=== PATIENT | male | born 1985 | race Hispanic/Latino ===

== ENCOUNTER 2018-04-24 20:40 | Emergency (ER) | payer SELFPAY ==
--- NOTE | 2018-04-24 22:08 | EDPHYS ---
Physician Documentation [facility] Name: Bo Drummond Age: 32 yrs Sex: Male : 1985 Arrival Date: 04/24/2018 Time: 20:46 Bed 9 Private MD: ED Physician Joao Tucker HPI: 04/24 22:05 This 32 yrs old Male presents to ER via Ambulatory with complaints of Work tw4 Release. 22:05 The patient or guardian reports cough, that is intermittent. Onset: The tw4 symptoms/episode began/occurred 2 day(s) ago. Severity of symptoms: At their worst the symptoms were mild, in the emergency department the symptoms have resolved. Modifying factors: The symptoms are alleviated by nothing, the symptoms are aggravated by nothing. Associated signs and symptoms: The patient has no apparent associated signs or symptoms. The patient has not experienced similar symptoms in the past. Historical: - Allergies: 21:08 No Known Allergies; tl3 - PSHx: 21:08 Appendectomy; Hernia repair; tl3 - Immunization history:: Adult Immunizations up to date. - Social history:: Smoking status: Patient uses tobacco products, smokes one pack cigarettes per day. - Ebola Screening: : Patient denies travel to an Ebola-affected area in the 21 days before illness onset. ROS: 22:05 Constitutional: Negative for fever, chills, and weight loss, Cardiovascular: Negative tw4 for chest pain, palpitations, and edema. 22:05 Back: Negative for injury and pain, MS/Extremity: Negative for injury and deformity. 22:05 Respiratory: Positive for cough, Negative for dyspnea on exertion, hemoptysis, orthopnea, pleurisy, shortness of breath, sputum production, wheezing. 22:05 Abdomen/GI: Positive for nausea, vomiting, and diarrhea, nausea, vomiting, diarrhea, Negative for abdominal pain, constipation, abdominal cramps, abdominal distension, anorexia, dysphagia, hematemesis, black/tarry stool, rectal pain, rectal bleeding, bowel incontinence. Exam: 22:05 Constitutional: This is a well developed, well nourished patient who is awake, alert, tw4 and in no acute distress. Head/Face: Normocephalic, atraumatic. Chest/axilla: Normal chest wall appearance and motion. Nontender with no deformity. No lesions are appreciated. Cardiovascular: Regular rate and rhythm with a normal S1 and S2. No gallops, murmurs, or rubs. Normal PMI, no JVD. No pulse deficits. Respiratory: Lungs have equal breath sounds bilaterally, clear to auscultation and percussion. No rales, rhonchi or wheezes noted. No increased work of breathing, no retractions or nasal flaring. Abdomen/GI: Soft, non-tender, with normal bowel sounds. No distension or tympany. No guarding or rebound. No evidence of tenderness throughout. MS/ Extremity: Pulses equal, no cyanosis. Neurovascular intact. Full, normal range of motion. Vital Signs: 21:08 BP 129 / 92; Pulse 90; Resp 18; Temp 98.6(T); Pulse Ox 98% ; Weight 77.11 kg; Height 5 tl3 ft. 7 in. (170.18 cm); 22:33 BP 123 / 86; Pulse 85; Resp 16; Pulse Ox 99% on R/A; Pain 0/10; aa1 21:08 Body Mass Index 26.63 (77.11 kg, 170.18 cm) tl3 MDM: 21:33 Patient medically screened. tw4 22:05 Differential Diagnosis: Bronchitis Asthma Exacerbation Viral Syndrome. Data reviewed: tw4 vital signs, nurses notes. Counseling: I had a detailed discussion with the patient and/or guardian regarding: the historical points, exam findings, and any diagnostic results supporting the discharge/admit diagnosis. Special discussion: I discussed with the patient/guardian in detail that at this point there is no indication for admission to the hospital. It is understood, however, that if the symptoms persist or worsen the patient needs to return immediately for re-evaluation. Administered Medications: No medications were administered Disposition: 04/24/18 22:07 Discharged to Home. Impression: Acute upper respiratory infection, unspecified. - Condition is Stable. - Discharge Instructions: Upper Respiratory Infection, Adult, Viral Infections, [id number]. - Work release form, Medication Reconciliation Form, Thank You Letter, Antibiotic Education, Prescription Opioid Use form. - Follow up: Private Physician; When: As needed; Reason: Recheck today's complaints, Continuance of care, Re-evaluation by your physician. - Problem is new. - Symptoms have improved. Signatures: Malathi Cisse RN RN aa1 Joao Tucker MD MD tw4 Quin Mahoney, RN RN tl3 Corrections: (The following items were deleted from the chart) 22:35 22:07 04/24/2018 22:07 Discharged to Home. Impression: Acute upper respiratory aa1 infection, unspecified. Condition is Stable. Forms are Medication Reconciliation Form, Thank You Letter, Antibiotic Education, Prescription Opioid Use. Follow up: Private Physician; When: As needed; Reason: Recheck today's complaints, Continuance of care, Re-evaluation by your physician. Problem is new. Symptoms have improved. tw4
--- NOTE | 2018-04-24 22:08 | ER ---
Nurse's Notes [facility] Name: Bo Drummond Age: 32 yrs Sex: Male : 1985 Arrival Date: 04/24/2018 Time: 20:46 Bed 9 Private MD: Diagnosis: Acute upper respiratory infection, unspecified Presentation: 04/24 21:07 Presenting complaint: Patient states: two days of vomiting and diarrhea, last episodes tl3 2am today, wants clearance to go back to work. Transition of care: patient was not received from another setting of care. Onset of symptoms. Risk Assessment: Do you want to hurt yourself or someone else? Patient reports no desire to harm self or others. Initial Sepsis Screen: Does the patient meet any 2 criteria? No. Patient's initial sepsis screen is negative. Does the patient have a suspected source of infection? No. Patient's initial sepsis screen is negative. Care prior to arrival: None. 21:07 Method Of Arrival: Ambulatory tl3 21:07 Acuity: [place] 5 tl3 Triage Assessment: 21:08 General: Appears in no apparent distress. Behavior is cooperative, appropriate for age. tl3 Pain: Denies pain. Historical: - Allergies: 21:08 No Known Allergies; tl3 - PSHx: 21:08 Appendectomy; Hernia repair; tl3 - Immunization history:: Adult Immunizations up to date. - Social history:: Smoking status: Patient uses tobacco products, smokes one pack cigarettes per day. - Ebola Screening: : Patient denies travel to an Ebola-affected area in the 21 days before illness onset. Screenin:30 Abuse screen: Denies threats or abuse. Denies injuries from another. Nutritional aa1 screening: No deficits noted. Tuberculosis screening: No symptoms or risk factors identified. Fall Risk None identified. Assessment: 21:30 General: Appears in no apparent distress. comfortable, Behavior is calm, cooperative, aa1 appropriate for age. Pain: Denies pain. Neuro: Level of Consciousness is awake, alert, obeys commands, Oriented to person, place, time, situation, Moves all extremities. Full function Gait is steady. Respiratory: Airway is patent Respiratory effort is even, unlabored, Respiratory pattern is regular, symmetrical. GI: No signs and/or symptoms were reported involving the gastrointestinal system. : No signs and/or symptoms were reported regarding the genitourinary system. EENT: No signs and/or symptoms were reported regarding the EENT system. Derm: Skin is intact, is healthy with good turgor, Skin is pink, warm \T\ dry. Musculoskeletal: Circulation, motion, and sensation intact. Capillary refill < 3 seconds. 22:33 Reassessment: Patient appears in no apparent distress at this time. Patient is alert, aa1 oriented x 3, equal unlabored respirations, skin warm/dry/pink. Discussed d/c \T\ f/u instructions with pt; work note given. Denies questions or concerns at this time. Vital Signs: 21:08 BP 129 / 92; Pulse 90; Resp 18; Temp 98.6(T); Pulse Ox 98% ; Weight 77.11 kg; Height 5 tl3 ft. 7 in. (170.18 cm); 22:33 BP 123 / 86; Pulse 85; Resp 16; Pulse Ox 99% on R/A; Pain 0/10; aa1 21:08 Body Mass Index 26.63 (77.11 kg, 170.18 cm) tl3 ED Course: 20:46 Patient arrived in ED. es 21:08 Triage completed. tl3 21:08 Arm band placed on left wrist. tl3 21:26 Joao Tucker MD is Attending Physician. aa1 21:30 Malathi Cisse, RN is Primary Nurse. aa1 21:30 Patient has correct armband on for positive identification. Bed in low position. Call aa1 light in reach. 22:33 No provider procedures requiring assistance completed. Patient did not have IV access aa1 during this emergency room visit. Administered Medications: No medications were administered Outcome: 22:07 Discharge ordered by . tw4 22:33 Discharged to home ambulatory. aa1 22:33 Condition: good 22:33 Discharge instructions given to patient, Instructed on discharge instructions, follow up and referral plans. Demonstrated understanding of instructions, follow-up care. 22:35 Patient left the ED. aa1 Signatures: Malathi Cisse, RN RN aa1 Sonia Roach Terrence, MD MD tw4 Quin Mahoney RN RN tl3
== END 2018-04-24 22:35 | disposition home or self-care (01) ==
LOC: ER 20:40
DX: J06.9 Acute upper respiratory infection, unspecified (principal); F17.210 Nicotine dependence, cigarettes, uncomplicated
CPT/HCPCS: 99281

== ENCOUNTER 2018-10-23 20:55 | Emergency (ER) | payer SELFPAY ==
--- NOTE | 2018-10-23 22:05 | RAD REPORT ---
EXAM DESCRIPTION: CT - Head Brain Wo Cont - 10/23/2018 9:54 pm CLINICAL HISTORY: left facial weakness TIA/CVA symptomology. Headache COMPARISON: No comparisons TECHNIQUE: All CT scans are performed using dose optimization technique as appropriate and may inclu de automated exposure control or mA/KV adjustment according to patient size. FINDINGS: No intracranial hemorrhage, hydrocephalus or extra-axial fluid collection.No areas of brai n edema or evidence of midline shift. The paranasal sinuses and mastoids are clear. The calvarium is intact. IMPRESSION: No acute intracranial abnormality.
--- NOTE | 2018-10-23 22:34 | ER ---
Nurse's Notes [facility] Name: Bo Drummond Age: 33 yrs Sex: Male : 1985 Arrival Date: 10/23/2018 Time: 21:00 Bed 14 Private MD: Diagnosis: Colindres's palsy Presentation: 10/23 21:07 Presenting complaint: Patient states: numbness to left side of face X3 days. Transition ak1 of care: patient was not received from another setting of care. Onset of symptoms is unknown. Risk Assessment: Do you want to hurt yourself or someone else? Patient reports no desire to harm self or others. Initial Sepsis Screen: Does the patient meet any 2 criteria? No. Patient's initial sepsis screen is negative. Does the patient have a suspected source of infection? No. Patient's initial sepsis screen is negative. Care prior to arrival: None. 21:07 Method Of Arrival: Ambulatory ak1 21:07 Acuity: [place]RA[place] 3 ak1 Triage Assessment: 21:08 General: Appears in no apparent distress. Behavior is calm, cooperative. Neuro: Level ak1 of Consciousness is awake, alert, obeys commands, Oriented to person, place, time, situation, Appropriate for age Porcelain Enameling Supervisor are equal bilaterally Moves all extremities. Gait is steady, Speech is normal, Facial droop on left, Facial symmetry: tongue is midline, Pupils are PERRLA. Historical: - Allergies: 21:08 No Known Allergies; ak1 - Home Meds: 21:08 None [Active]; ak1 - PMHx: 21:08 None; ak1 - PSHx: 21:08 Hernia repair; Appendectomy; ak1 - Immunization history:: Adult Immunizations unknown. - Social history:: Smoking status: Patient uses tobacco products, smokes one pack cigarettes per day. - Ebola Screening: : No symptoms or risks identified at this time. - Family history:: not pertinent. - Hospitalizations: : No recent hospitalization is reported. Screenin:25 Abuse screen: Denies threats or abuse. Nutritional screening: No deficits noted. jb4 Tuberculosis screening: No symptoms or risk factors identified. Fall Risk None identified. Assessment: 21:25 General: Appears in no apparent distress. comfortable, Behavior is calm, cooperative, jb4 appropriate for age. Pain: Denies pain. Neuro: Level of Consciousness is awake, alert, obeys commands, Oriented to person, place, time, situation, Porcelain Enameling Supervisor are equal bilaterally Moves all extremities. Full function Gait is steady, Speech is normal, Facial droop on left, Pupils are PERRLA, Intact. Cardiovascular: Heart tones S1 S2 present Patient's skin is warm and dry. Respiratory: Airway is patent Respiratory effort is even, unlabored, Respiratory pattern is regular, symmetrical, Breath sounds are clear bilaterally. GI: No signs and/or symptoms were reported involving the gastrointestinal system. : No signs and/or symptoms were reported regarding the genitourinary system. EENT: No signs and/or symptoms were reported regarding the EENT system. Derm: Skin is intact, Skin is pink, warm \T\ dry. Musculoskeletal: Circulation, motion, and sensation intact. 23:13 Reassessment: Patient appears in no apparent distress at this time. Patient and/or jb4 family updated on plan of care and expected duration. Pain level reassessed. Patient is alert, oriented x 3, equal unlabored respirations, skin warm/dry/pink. Vital Signs: 21:08 BP 150 / 87; Pulse 69; Resp 18; Temp 98(O); Pulse Ox 100% on R/A; Weight 81.65 kg (R); ak1 Height 5 ft. 7 in. (170.18 cm) (R); Pain 0/10; 23:13 BP 121 / 86; Pulse 78; Resp 16; Pulse Ox 100% on R/A; jb4 21:08 Body Mass Index 28.19 (81.65 kg, 170.18 cm) ak1 NIH Stroke Scale Scores: 21:25 NIHSS Score: 1 jb4 ED Course: 21:00 Patient arrived in ED. es 21:08 Triage completed. ak1 21:08 Arm band placed on Patient placed in waiting room, Patient notified of wait time. ak1 21:11 Randall Gutierrez MD is Attending Physician. rn 21:25 Josse Munguia, ARTEMIO is Primary Nurse. jb4 21:25 Patient has correct armband on for positive identification. Bed in low position. Call jb4 light in reach. Side rails up X 1. Pulse ox on. NIBP on. 21:54 CT completed. Patient moved to CT via wheelchair. Patient moved back from CT. cw1 23:13 No provider procedures requiring assistance completed. Patient did not have IV access jb4 during this emergency room visit. Administered Medications: No medications were administered Outcome: 22:34 Discharge ordered by . rn 23:13 Discharged to home ambulatory. jb4 23:13 Condition: stable 23:13 Discharge instructions given to patient, Instructed on discharge instructions, follow up and referral plans. medication usage, Demonstrated understanding of instructions, follow-up care, medications, Prescriptions given X 2. 23:15 Patient left the ED. jb4 NIH Stroke Scale - NIH Stroke Score Date: 10/23/2018 Time: 21:25 Total Score = 1 1a. Level of Consciousness (LOC) - 0(Alert) 1b. Level of Consciousness (LOC) (Year \T\ Age) - 0(Both) 1c. LOC Commands (Open \T\ Closes Eyes/Building Engineer) - 0(Both) 2. Best Gaze (Lateral Gaze Paresis) - 0(Normal) 3. Visual Field Loss - 0(No visual loss) 4. Facial Palsy - 1(Minor Paralysis) 5a. Left Arm: Motor (10-second hold) - 0(No drift) 5b. Right Arm: Motor (10-second hold) - 0(No drift) 6a. Left Leg: Motor (5-second hold - always test supine) - 0(No drift) 6b. Right Leg: Motor (5-second hold - always test supine) - 0(No drift) 7. Limb Ataxia (finger/nose \T\ heel/thomas - test with eyes open) - 0(Absent) 8. Sensory Loss (pinprick arms/legs/face) - 0(Normal) 9. Best Language: Aphasia (description/naming/reading) - 0(No aphasia) 10. Dysarthria (speech clarity - read or repeat words) - 0(Normal) 11. Extinction and Inattention (visual/tactile/auditory/spatial/personal) - 0(No abnormality) Initials: jb4 Signatures: Sonia Roach Roman, MD MD rn Woodley, Crystal cw1 Karla Boothe RN RN ak1 Josse Munguia RN RN jb4
--- NOTE | 2018-10-23 22:35 | EDPHYS ---
Physician Documentation [facility] Name: Bo Drummond Age: 33 yrs Sex: Male : 1985 Arrival Date: 10/23/2018 Time: 21:00 Bed 14 Private MD: ED Physician Randall Gutierrez HPI: 10/23 21:18 This 33 yrs old Male presents to ER via Ambulatory with complaints of rn Weakness, X 3 DAYS AGO. 21:18 The patient's problem is reported as a facial droop, on left. Onset: The rn symptoms/episode began/occurred 3 day(s) ago. Duration: This was a single incident. The symptoms are alleviated by nothing. The symptoms are aggravated by nothing. Associated signs and symptoms: Pertinent positives: weakness, Pertinent negatives: abdominal pain, ataxia, blurred vision, confusion, headache, numbness. Severity of symptoms: At their worst the symptoms were mild in the emergency department the symptoms are unchanged. The patient has not experienced similar symptoms in the past. The patient has not recently seen a physician. Reports last 3 days, left facial weakness, no trauma, no headache, never had before, not getting better or worse, noticed left eye and facial weakness, no other focal neurological complaint.. Historical: - Allergies: 21:08 No Known Allergies; ak1 - Home Meds: 21:08 None [Active]; ak1 - PMHx: 21:08 None; ak1 - PSHx: 21:08 Hernia repair; Appendectomy; ak1 - Immunization history:: Adult Immunizations unknown. - Social history:: Smoking status: Patient uses tobacco products, smokes one pack cigarettes per day. - Ebola Screening: : No symptoms or risks identified at this time. - Family history:: not pertinent. - Hospitalizations: : No recent hospitalization is reported. ROS: 21:18 Constitutional: Negative for fever, chills, and weight loss, Eyes: Negative for injury, rn pain, redness, and discharge, Neck: Negative for injury, pain, and swelling, Cardiovascular: Negative for chest pain, palpitations, and edema, Respiratory: Negative for shortness of breath, cough, wheezing, and pleuritic chest pain, Abdomen/GI: Negative for abdominal pain, nausea, vomiting, diarrhea, and constipation, MS/Extremity: Negative for injury and deformity, Skin: Negative for injury, rash, and discoloration, Neuro: + weakness of left face Exam: 21:18 Constitutional: This is a well developed, well nourished patient who is awake, alert, rn and in no acute distress. Head/Face: Normocephalic, atraumatic. Eyes: Pupils equal round and reactive to light, extra-ocular motions intact. Lids and lashes normal. Conjunctiva and sclera are non-icteric and not injected. Cornea within normal limits. Periorbital areas with no swelling, redness, or edema. Skin: Warm, dry with normal turgor. Normal color with no rashes, no lesions, and no evidence of cellulitis. MS/ Extremity: Pulses equal, no cyanosis. Neurovascular intact. Full, normal range of motion. Equal circumference. Neuro: Awake and alert, GCS 15, oriented to person, place, time, and situation.+ left upper and lower facial droop, mild. Motor strength 5/5 in all extremities. Sensory grossly intact. Cerebellar exam normal. Normal gait. Vital Signs: 21:08 BP 150 / 87; Pulse 69; Resp 18; Temp 98(O); Pulse Ox 100% on R/A; Weight 81.65 kg (R); ak1 Height 5 ft. 7 in. (170.18 cm) (R); Pain 0/10; 23:13 BP 121 / 86; Pulse 78; Resp 16; Pulse Ox 100% on R/A; jb4 21:08 Body Mass Index 28.19 (81.65 kg, 170.18 cm) ak1 NIH Stroke Scale Scores: 21:25 NIHSS Score: 1 jb4 MDM: 21:11 Patient medically screened. rn 22:32 Differential diagnosis: bells palsy. Data reviewed: vital signs, nurses notes, rn radiologic studies, CT scan, and as a result, I will discharge patient. Counseling: I had a detailed discussion with the patient and/or guardian regarding: the historical points, exam findings, and any diagnostic results supporting the discharge/admit diagnosis, radiology results, the need for outpatient follow up, to return to the emergency department if symptoms worsen or persist or if there are any questions or concerns that arise at home. Special discussion: I discussed with the patient/guardian in detail that at this point there is no indication for admission to the hospital. It is understood, however, that if the symptoms persist or worsen the patient needs to return immediately for re-evaluation. Based on the history and exam findings, there is no indication for further emergent testing or inpatient evaluation. I discussed with the patient/guardian the need to see the primary care provider for further evaluation of the symptoms. ED course: Ct head negative, symptoms consistent with bells palsy.. 10/23 21:18 Order name: CT Head Brain wo Cont rn 10/23 22:07 Order name: CT EDMS Administered Medications: No medications were administered Disposition: 10/23/18 22:34 Discharged to Home. Impression: Colindres's palsy. - Condition is Stable. - Discharge Instructions: Colindres Palsy, Adult. - Prescriptions for Acyclovir 400 mg Oral Tablet - take 1 tablet by ORAL route every 8 hours; 30 tablet. Medrol (Tate) 4 mg Oral Tablets, Dose Pack - take 1 tablet by ORAL route as directed - follow package instructions; 1 packet. - Medication Reconciliation Form, Thank You Letter, Antibiotic Education, Prescription Opioid Use, Work release form form. - Follow up: Private Physician; When: As needed; Reason: Recheck today's complaints, Re-evaluation by your physician. - Problem is an ongoing problem. - Symptoms are unchanged. NIH Stroke Scale - NIH Stroke Score Date: 10/23/2018 Time: 21:25 Total Score = 1 1a. Level of Consciousness (LOC) - 0(Alert) 1b. Level of Consciousness (LOC) (Year \T\ Age) - 0(Both) 1c. LOC Commands (Open \T\ Closes Eyes/Assistant Education Director) - 0(Both) 2. Best Gaze (Lateral Gaze Paresis) - 0(Normal) 3. Visual Field Loss - 0(No visual loss) 4. Facial Palsy - 1(Minor Paralysis) 5a. Left Arm: Motor (10-second hold) - 0(No drift) 5b. Right Arm: Motor (10-second hold) - 0(No drift) 6a. Left Leg: Motor (5-second hold - always test supine) - 0(No drift) 6b. Right Leg: Motor (5-second hold - always test supine) - 0(No drift) 7. Limb Ataxia (finger/nose \T\ heel/thomas - test with eyes open) - 0(Absent) 8. Sensory Loss (pinprick arms/legs/face) - 0(Normal) 9. Best Language: Aphasia (description/naming/reading) - 0(No aphasia) 10. Dysarthria (speech clarity - read or repeat words) - 0(Normal) 11. Extinction and Inattention (visual/tactile/auditory/spatial/personal) - 0(No abnormality) Initials: jb4 Signatures: Dispatcher [employer] EDRandall Condon MD MD rn Karla Boothe RN RN ak1 Josse Munguia RN RN jb4 Corrections: (The following items were deleted from the chart) 23:15 22:34 10/23/2018 22:34 Discharged to Home. Impression: Colindres's palsy. Condition jb4 is Stable. Forms are Medication Reconciliation Form, Thank You Letter, Antibiotic Education, Prescription Opioid Use. Follow up: Private Physician; When: As needed; Reason: Recheck today's complaints, Re-evaluation by your physician. Problem is an ongoing problem. Symptoms are unchanged. rn
== END 2018-10-23 23:15 | disposition home or self-care (01) ==
LOC: ER 20:55
DX: G51.0 Bell's palsy (principal); F17.210 Nicotine dependence, cigarettes, uncomplicated
CPT/HCPCS: 70450; 99284

== ENCOUNTER 2024-01-18 08:26 | Day surgery (SDC) | payer OTHER, SELFPAY ==
[2024-01-18] MEDS ORDERED: propofoL 200 MG/20 ML VIAL IV ONE (08:50)
[2024-01-18] MEDS ORDERED: LIDOCAINE 2% MPF 5 ML VIAL ONE (08:50)
[2024-01-18] MEDS ORDERED: ONDANSETRON 4 MG/2 ML VIAL ONE (08:50)
[2024-01-18] MEDS ORDERED: ROCURONIUM 50 MG/5 ML VIAL IV ONE (08:50)
[2024-01-18] MEDS ORDERED: KETOROLAC 30 MG/ML INJ ONE (08:50)
[2024-01-18] MEDS ORDERED: dexAMETHasone 10 MG/ML VIAL ONE ×2 (08:50→09:28)
[2024-01-18] MEDS ORDERED: MIDAZOLAM HCL 2 MG/2 ML INJ ONE (08:50)
[2024-01-18] MEDS ORDERED: FENTANYL CITR 100 MCG/2 ML ONE (08:50)
[2024-01-18] MEDS: Ringers Lactate 1,000 ML IV ONE (09:00)
[2024-01-18 09:17] LABS: Absolute Lymphocytes (CBC) 2.7 K/uL (0.7-4.9); Lymphocytes % 40.6 % (15.3-44.8); MCV 87.3 fL (80-100); MPV 7.1 fL (7.6-11.3); Platelets 316 thou/uL (152-406); RBC Red Blood Cell Count 5.16 M/uL (4.33-5.43)
[2024-01-18] MEDS ORDERED: EPINEPHRINE 1 MG/ML VIAL ONE (09:28)
[2024-01-18 09:30] LABS: Potassium 3.9 mEq/L (3.5-5.1)
--- NOTE | 2024-01-18 09:36 | RAD REPORT ---
EXAM DESCRIPTION: RAD - Chest Single View - 01/18/2024 9:15 am CLINICAL HISTORY: preop COMPARISON: No comparisons FINDINGS: Lines: None. Lungs: No evidence of edema or pneumonia. Pleural: No significant pleural effusions or pneumothorax. Cardiac: The heart size is within normal limits. Mediastinum: Within normal limits. Bones: No acute fractures. Other: None IMPRESSION: No acute cardiopulmonary disease.
[2024-01-18] MEDS: CEFAZOLIN SODIUM 1 GM/VIAL ONE (11:10)
[2024-01-18] MEDS ORDERED: SUGAMMADEX SODIUM 200 MG/2 ML VIAL IV ONE (11:12)
[2024-01-18] MEDS: BUPIVACAINE 0.5% PF 10 ML VIAL ONE ×2 (11:40→12:00)
--- NOTE | 2024-01-18 12:09 | P.BOP ---
Preoperative diagnosis: tender right inguinal hernia Postoperative diagnosis: same Primary procedure: Laparoscopic repair of tender right inguinal hernia with mesh Boiling House Oiler: Glenis Poole (Gold) Estimated blood loss: <10cc Specimen: none Findings: RIH Anesthesia: General Complications: None Drain(s): Other (medium 3D mesh) Transferred to: Recovery Room Condition: Good
[2024-01-18] MEDS: HYDROCODONE/APAP 7.5/325 MG TAB ONE (14:01)
[2024-01-18 15:01] VITALS: BP 134/94; TEMP 97.3; O2SAT 96
--- NOTE | 2024-01-18 23:27 | OP ---
Date of Procedure: 01/18/2024 Surgeon: Iván Barone MD Cipher Expert: SHAWNEE Evans. Preoperative Diagnosis: Tender, right inguinal hernia. Postoperative Diagnosis: Tender, right inguinal hernia. Procedure: Laparoscopic repair of tender right inguinal hernia with mesh. Estimated Blood Loss: Less than 10 cc. Specimen: None. Findings: Right inguinal hernia. Anesthesia: General plus local. Complications: None. Implants: 3D medium mesh. Complications: None. Indications: This is a case of a 38-year-old patient who comes to us with a tender right inguinal he rnia. The benefits, alternatives, and risks of laparoscopic versus open repair fully explained, whic h include, but not limited to infection, bleeding, damage to adjacent structures, anesthesia complica tion, recurrence, IL, even . He also understands this may not relieve symptoms, he might need m ore than one surgical intervention. He understood and signed a consent. Description Of Procedure: The patient brought to the operating room, placed in supine position. Ane sthesia was done without complication. Abdominal area was prepped and draped in usual sterile fashio n. Marcaine 0.5% was injected for local anesthetic followed by sharp incision of the skin in the per iumbilical region. Incision was carried down until we found the anterior rectus sheath that was open ed on the right side and the muscle retracted laterally to expose the posterior rectus sheath. The e xtraperitoneal space was gently developed with the help of blunt dissection and then a Spacemaker bal loon tipped 10 mm trocar was placed in that area directed to the pubic symphysis. The scope was plac ed then and the balloon was inflated under direct visualization to create the extraperitoneal space. The balloon was then deflated, removed from the abdomen. The area was insufflated, put the cameras back in and then under direct visualization, we placed a 5 mm trocar just above the pubic symphysis a nd another one senior living between the first and the second one. The preperitoneal space was further dev eloped by exposing the inferior epigastric vessels and keeping them anterior. Syed's ligament was dissected laterally to the junction with the iliac veins. The dissection continued inferiorly to the iliopubic tract avoiding damage to the femoral branch of the genitofemoral nerve and lateral femoral cutaneous nerve. The cord structures were skeletonized and hernia sac was identified, reduced by ge ntle traction into the peritoneum. At that moment, I proceeded to introduce a 3D mesh on the working site through the umbilical trocar. The mesh was unrolled and placed to cover direct, indirect space s. The mesh was secured in place lateral and superior to the iliopubic tract and inferior medial to the Syed's ligament with the help of SorbaFix fixation device. After ensuring adequate hemostasis, we proceeded then to let the air escape while we hold the mesh in place making sure the hernia sac i s still reduced. At that moment, I removed the trocars and then closed the anterior rectus sheath wi th #1 Vicryl and the skin in a subcuticular fashion with 3-0 chromic with Steri-Strip on top. Sponge count and instrument count were correct. Patient tolerated the procedure well. Patient was sent to Recovery in stable condition. At the end of the case, testicles were within the scrotum. Disposition: Home. Activity: As tolerated. No heavy lifting Follow up in my office in one week, call for an appointment at [phone]. Keep area dry for 48 hours, then may shower. Keep Steri-Strip intact. Cold compress to the right inguinal region for 24 hours. LUZ MARINA/MARISSA Voice ID: [id number] Report ID: [id number]
== END 2024-01-18 14:55 | disposition home or self-care (01) ==
LOC: OR 08:26
PROVIDERS: ATTEND Surgery
PROC: 0YU54JZ Supplement Right Inguinal Region with Synthetic Substitute, Percutaneous Endoscopic Approach (ICD-10-PCS; principal; 2024-01-18 11:15)
DX: K40.90 Unilateral inguinal hernia, without obstruction or gangrene, not specified as recurrent (principal); F17.210 Nicotine dependence, cigarettes, uncomplicated
CPT/HCPCS: 85025; 80048; 36415; 71045; 49650; J2704; J2001; J2250; J3010; J1100 ×2; J0171; J2405; J7120; J0690